=== PATIENT | male | born 1945 | race Caucasian/White ===

== ENCOUNTER 2017-06-16 15:50 | Emergency (ER) | payer BC, OTHER ==
[2017-06-16 16:43] VITALS: BP 141/85
--- NOTE | 2017-06-16 16:50 | UC ---
Hand/Wrist HPI - HPI Summary HPI Summary: cut his L thumb yesterday at 5pm while stripping wire with a knife. bleeds when he bends the thumb. no limited rom or numb/weakness. needs tetanus shot. - History Of Current Complaint Stated Complaint: LT THUMB LAC Time Seen by Provider: 06/16/17 16:39 Hx Obtained From: Patient Onset/Duration: Sudden Onset Associated Signs And Symptoms: Negative: Swelling, Redness, Fever, Weakness, Numbness/Tingling - Allergies/Home Medications Allergies/Adverse Reactions: Allergies Allergy/AdvReac Type Severity Reaction Status Date / Time No Known Allergies Allergy Verified 06/16/17 16:44 Home Medications: Home Medications Metformin HCl [Fortamet] 1,000 mg PO BID 06/16/17 [History Confirmed 06/16/17] PMH/Surg Hx/FS Hx/Imm Hx - Additional Past Medical History Additional PMH: BPH Endocrine History: Diabetes - Surgical History Surgical History: None - Family History Known Family History: Positive: None - Social History Occupation: Employed Full-time Lives: With Family Substance Use Type: None Review of Systems Constitutional: Negative Skin: Other - lac L thumb Eyes: Negative ENT: Negative Respiratory: Negative Cardiovascular: Negative Gastrointestinal: Negative Genitourinary: Negative Motor: Negative Neurovascular: Negative Musculoskeletal: Negative Neurological: Negative Psychological: Negative Is Patient Immunocompromised?: No All Other Systems Reviewed And Are Negative: Yes Physical Exam Triage Information Reviewed: Yes Appearance: Well-Appearing Vital Signs Reviewed: Yes Eyes: Positive: Conjunctiva Clear ENT: Positive: Normal ENT inspection Neck: Positive: Supple, Nontender, No Lymphadenopathy Respiratory: Positive: Lungs clear, Normal breath sounds Cardiovascular: Positive: RRR, No Murmur Abdomen Description: Positive: Nontender, No Organomegaly, Soft Bowel Sounds: Positive: Present Musculoskeletal: Positive: ROM Intact Neurological: Positive: Alert Psychological: Positive: Age Appropriate Behavior Skin Exam: Other - 3cm superficial flap laceration dorsal L thumb over distal phalanx. edges of flap are a little pale. thumb has full s/v/m function with and without resistance. center of flap has adhered. scant bleeding from wound edges. Procedures - Procedure Summary Procedure Summary: thumb/wound cleaned with sterile water and hibiclens. 3cm flap post cleaning. Mastisol to edges and 2 steri strips applied to keep wound approximated. sterile gauze cover after. tolerated well. Hand/Wrist Course/Dx - Course Course Of Treatment: wound 24 hours old thus no sutures, single steri strip to keep wound closed. - Differential Dx/Diagnosis Provider Diagnoses: 3cm L thumb laceration Discharge - Sign-Out/Discharge Documenting (check all that apply): Discharge/Admit/Transfer - Discharge Plan Condition: Stable Disposition: HOME Patient Education Materials: [employer] (ED) Referrals: Vargas Forrest MD [Primary Care Provider] - 3 Days - Billing Disposition and Condition Condition: STABLE Disposition: HOME
[2017-06-16] MEDS ORDERED: Tetan/Diph/Pertus SYR(Tdap)* 0.5 ML SYR(BOOSTRIX) use SYR IM ONE (16:53)
== END 2017-06-16 17:21 | disposition home or self-care (01) ==
LOC: UCCORT 15:50
DX: S61.012A Laceration without foreign body of left thumb without damage to nail, initial encounter (principal); W26.0XXA Contact with knife, initial encounter; Y93.89 Activity, other specified; Y92.9 Unspecified place or not applicable; E11.9 Type 2 diabetes mellitus without complications; Z79.84 Long term (current) use of oral hypoglycemic drugs
CPT/HCPCS: 90471; 90715; 99202; G0463

== ENCOUNTER 2017-06-20 13:33 | Emergency (ER) | payer BC ==
[2017-06-20 14:46] VITALS: BP 140/86
--- NOTE | 2017-06-20 15:44 | UC ---
HPI Wound/Suture Re-check - HPI Summary HPI Summary: Injured thumb on the 1st. Unable to close due to > 24 hours. Steri strips placed. - History Of Current Complaint Chief Complaint: [employer] Stated Complaint: FOLLOW UP-LFT THUMB Time Seen by Provider: 06/20/17 15:38 Hx Obtained From: Patient Onset/Duration: Sudden Onset - 06/16, Still Present Severity: Mild Pain Intensity: 0 Procedure Type: Steri strip - Allergies/Home Medications Allergies/Adverse Reactions: Allergies Allergy/AdvReac Type Severity Reaction Status Date / Time No Known Allergies Allergy Verified 06/20/17 14:46 PMH/Surg Hx/FS Hx/Imm Hx Endocrine History: Diabetes Other GI/ History: BPH - Surgical History Surgical History: None - Family History Known Family History: Positive: Cardiac Disease, Diabetes - Social History Occupation: Employed Part-time Lives: With Family Alcohol Use: None Substance Use Type: None Smoking Status (MU): Never Smoked Tobacco - Immunization History Most Recent Tetanus Shot: 2017 Review of Systems Is Patient Immunocompromised?: No All Other Systems Reviewed And Are Negative: Yes Physical Exam Triage Information Reviewed: Yes Appearance: Well-Appearing, No Pain Distress, Well-Nourished Vital Signs: Initial Vital Signs Temp 98.5 F 06/20/17 14:40 Pulse 72 06/20/17 14:40 Resp 16 06/20/17 14:40 BP 140/86 06/20/17 14:40 Pulse Ox 96 06/20/17 14:40 Vital Signs Reviewed: Yes Eyes: Positive: Conjunctiva Clear Neck exam: Normal Respiratory Exam: Normal Cardiovascular Exam: Normal Musculoskeletal Exam: Normal Neurological Exam: Normal Psychological Exam: Normal Skin: Positive: Other - Left thumb wound with good healing. Steri strips in place. Course/Dx - Differential Dx - Laceration/Wound Differential Diagnoses: Dehiscence, Healing Wound Provider Diagnoses: Healing wound left thumb Discharge - Sign-Out/Discharge Documenting (check all that apply): Discharge/Admit/Transfer - Discharge Plan Condition: Critical Disposition: HOME Patient Education Materials: [employer] (ED) Referrals: Vargas Forrest MD [Primary Care Provider] - - Billing Disposition and Condition Condition: CRITICAL Disposition: HOME
== END 2017-06-20 15:49 | disposition home or self-care (01) ==
LOC: UCCORT 13:33
DX: S61.012D Laceration without foreign body of left thumb without damage to nail, subsequent encounter (principal); X58.XXXD Exposure to other specified factors, subsequent encounter; E11.9 Type 2 diabetes mellitus without complications
CPT/HCPCS: 99211; G0463